=== PATIENT | male | born 1960 | race Two or more races ===

== ENCOUNTER → 2024-06-25 | Emergency (ER) | payer OTHER ==
[~2024-06-25] VITALS: Ht 172.7 cm; Wt 80.7 kg
[~2024-06-25] MED LIST: DEXAMETHASONE SODIUM PHOSPHATE 4 MG/ML VIAL IM STA; IBU400 MG PO; KETOROLAC TROMETHAMINE 60 MG VIAL IM STA
[2024-06-25 15:51] VITALS: BP 138/81; O2SAT 99
== END | disposition home or self-care (01) ==
LOC: ER 14:48
DX: S90.414A Abrasion, right lesser toe(s), initial encounter (principal); X58.XXXA Exposure to other specified factors, initial encounter; Y93.89 Activity, other specified; Y92.89 Other specified places as the place of occurrence of the external cause; Y99.8 Other external cause status
CPT/HCPCS: 73630; 96372; 99283; J1100; J1885

== ENCOUNTER 2024-12-01 07:20 | Outpatient (CLI) | payer OTHER ==
[~2024-12-01 07:20] MED LIST changes: -DEXAMETHASONE SODIUM PHOSPHATE 4 MG/ML VIAL IM STA; -KETOROLAC TROMETHAMINE 60 MG VIAL IM STA
== END 2024-12-01 07:21 | disposition home or self-care (01) ==
LOC: NUCLEAR 07:20
PROVIDERS: ATTEND Urology
DX: I20.9 Angina pectoris, unspecified (principal)
CPT/HCPCS: 78452; 93017; A9500

== ENCOUNTER 2024-12-01 10:53 | Outpatient (CLI) | payer OTHER | END 2024-12-01 10:57 | disposition home or self-care (01) | LOC: RAD 10:53 | DX: R07.9 Chest pain, unspecified (principal); Z01.810 Encounter for preprocedural cardiovascular examination ==

== ENCOUNTER 2025-02-17 07:17 | Outpatient (CLI) | payer OTHER | END 2025-02-17 07:18 | disposition home or self-care (01) | LOC: TOM 07:17 | PROVIDERS: ATTEND Urology | DX: C61 Malignant neoplasm of prostate (principal) | CPT/HCPCS: 72193; Q9965 ==